=== PATIENT | female | born 1985 | race African-American/Black ===

== ENCOUNTER → 2020-02-06 12:30 | Outpatient (REF) | payer BC, SELFPAY | LOC: LABSPEC 12:30 | PROVIDERS: Referring Provider Family Medicine; Visit Provider Family Medicine | DX: U07.1 COVID-19 (principal) | CPT/HCPCS: 87635; U0003 ==

== ENCOUNTER 2021-04-08 08:09 | Outpatient (CLI) | payer BC, SELFPAY ==
--- NOTE | 2021-04-08 08:17 | RAD_ITS ---
STUDY: HYSTEROSALPINGOGRAM. REASON FOR EXAM: Female, 35 years old. INFERTILITY FLUOROSCOPY TIME (if supplied): ( 13 seconds ) minutes/seconds. One image was submitted. TECHNIQUE: Hysterosalpingogram was performed by the plant technician/control room operator. Imaging was provided. COMPARISON: None. FINDINGS: The uterus is unremarkable. Both fallopian tubes are patent with free spill. RAD/Salpingogram IMPRESSION: The fallopian tubes are patent with free spill. The uterus is unremarkable. Electronically Signed: Taco Brown MD at 8:56 EST , Service support ,
== END 2021-04-08 23:59 | disposition short-term general hospital (02) ==
PROVIDERS: PCP Family Medicine; Referring Provider Obstetrics & Gynecology; Visit Provider Obstetrics & Gynecology
DX: N97.9 Female infertility, unspecified (principal)
CPT/HCPCS: 58340; 74740; Q9967

== ENCOUNTER 2021-06-29 07:23 | Outpatient (CLI) | payer BC, SELFPAY ==
[2021-06-29 08:18] LABS: Progesterone Level 0.55 ng/mL (See Comment)
== END 2021-06-29 23:59 | disposition home or self-care (01) ==
LOC: LAB 07:25
PROVIDERS: PCP Family Medicine; Referring Provider Obstetrics & Gynecology; Visit Provider Obstetrics & Gynecology
DX: N97.9 Female infertility, unspecified (principal)
CPT/HCPCS: 36415; 84144